=== PATIENT | male | born 1970 | race Caucasian/White ===

== ENCOUNTER → 2017-09-03 | Outpatient (CLI) | payer OTHER ==
--- NOTE | 2017-09-03 15:16 | XR ---
EXAMINATION TYPE: XR foot complete LT DATE OF EXAM: 09/03/2017 COMPARISON: NONE HISTORY: Slip and fall twisting foot pain medially TECHNIQUE: Three-view left foot FINDINGS: Degenerative joint changes at the first metatarsophalangeal joint space. No acute fractures evident. Tiny plantar calcaneal heel spur is present. Follow-up exams can be performed 7-10 days from acute trauma for continued pain. IMPRESSION: 1. No acute osseous abnormality.
== END | disposition home or self-care (01) ==
LOC: RADXRMAIN 14:49
PROVIDERS: ATTEND Emergency Medicine
DX: S93.602A Unspecified sprain of left foot, initial encounter (principal)

== ENCOUNTER 2018-05-28 16:40 | Emergency (ER) | payer BC, OTHER ==
[2018-05-28 16:50] VITALS: RESP 18; TEMP 98.7
[2018-05-28 17:23] LABS: Basophils # (A) 0.1 k/uL (0-0.2); Basophils % (A) 1 %; Eosinophils # (A) 0.3 k/uL (0-0.7); Eosinophils % (A) 4 %; Lymphocytes # (A) 2.4 k/uL (1.0-4.8); Lymphocytes % (A) 30 %; MCH 32.9 pg (25.0-35.0); MCV 94.2 fL (80.0-100.0); Mean Platelet Volume 6.9; Monocytes # (A) 0.5 k/uL (0-1.0); Monocytes % (A) 7 %; Neutrophils # (A) 4.5 k/uL (1.3-7.7); Neutrophils % (A) 57 %; Platelet Count 286 k/uL (150-450); RBC 4.56 m/uL (4.30-5.90); RDW 12.5 % (11.5-15.5)
--- NOTE | 2018-05-28 17:31 | XR ---
EXAMINATION TYPE: XR knee 4V RT DATE OF EXAM: 05/28/2018 CLINICAL HISTORY: Ongoing right knee pain TECHNIQUE: Three views of the right knee are obtained. A fourth sunrise view was acquired. COMPARISON: None. FINDINGS: There is no acute fracture/dislocation evident in right knee. Mild narrowing medial tibiof emoral compartment is present. Mild to moderate narrowing patellofemoral compartment is seen. Patell ar articulation is within normal limits on sunrise view. The overlying soft tissue appears unremarkab le. IMPRESSION: As above.
[2018-05-28 17:33] LABS: ALT 32 U/L (21-72); AST 36 U/L (17-59); Albumin 4.1 g/dL (3.5-5.0); Alkaline Phosphatase 60 U/L (38-126); Anion Gap 8 mmol/L; Blood Urea Nitrogen 16 mg/dL (9-20); Calcium 9.3 mg/dL (8.4-10.2); Carbon Dioxide 25 mmol/L (22-30); Chloride 108 mmol/L (98-107); Glucose 140 mg/dL (74-99); Potassium 4.4 mmol/L (3.5-5.1); Sodium 141 mmol/L (137-145); Total Bilirubin 0.4 mg/dL (0.2-1.3); Total Protein 7.2 g/dL (6.3-8.2)
[2018-05-28] MEDS ORDERED: KETOROLAC 60 MG/2 ML VIAL IM STA (18:13)
[2018-05-28 18:29] VITALS: BP 154/101; PULSE 97
--- NOTE | 2018-05-28 18:35 | ED ---
General Adult HPI - General Chief complaint: Extremity Injury, Lower Stated complaint: IHS - rt knee pain Source: patient, RN notes reviewed, old records reviewed Mode of arrival: ambulatory Limitations: no limitations - History of Present Illness Initial comments: 48-year-old male patient presents to ED with 3 weeks of right knee pain. Patient states that for approximately 3 weeks he has been having stiffness, pain in his right knee. Patient denies acute fall, trauma or injury which caused the pain. Patient states that the last 3 days it has become worse. States that particular bending his knees painful. She is still ambulatory. Patient denies other symptoms including fever chills, nausea vomiting diarrhea, chest pain, shortness breath, IV drug use. Patient denies red swollen knee, edema, drainage. Systemic: Pt denies fatigue, myalgia, fever/chills, rash. Pt denies weakness, night sweats, weight loss. Neuro: Pt denies headache, visual disturbances, syncope or pre-syncope. HEENT: Pt denies ocular discharge or irritation, otalgia, rhinorrhea, pharyngitis or notable lymphadenopathy. Cardiopulmonary: Pt denies chest pain, SOB, heart palpitations, dyspnea on exertion. Abdominal/GI: Pt denies abdominal pain, n/v/d. : Pt denies dysuria, burning w/ urination, frequency/urgency. Denies new onset urinary or bowel incontinence. MSK: Pt denies myalgia, loss of strength in extremities. - Related Data Home Medications Medication Instructions Recorded Confirmed lamoTRIgine [LaMICtal] 200 mg PO DAILY 04/26/15 04/30/15 Previous Rx's Medication Instructions Recorded Amoxicillin/Potassium Clav 1 each PO Q12HR #20 tab 04/26/15 [Augmentin 875-125 Tablet] Ibuprofen [Motrin] 600 mg PO Q6HR PRN #40 day 05/28/18 Allergies Allergy/AdvReac Type Severity Reaction Status Date / Time No Known Allergies Allergy Verified 05/28/18 16:50 Review of Systems ROS Statement: Those systems with pertinent positive or pertinent negative responses have been documented in the HPI. ROS Other: All systems not noted in ROS Statement are negative. Past Medical History Past Medical History: Seizure Disorder History of Any Multi-Drug Resistant Organisms: None Reported Past Surgical History: No Surgical Hx Reported Past Psychological History: No Psychological Hx Reported Smoking Status: Never smoker Past Alcohol Use History: Occasional Past Drug Use History: None Reported General Exam - General Exam Comments Initial Comments: Constitutional: NAD, AOX3, Pt has pleasant affect. HEENT: NC/AT, trachea midline, neck supple, no lymphadenopathy. Posterior pharynx non erythematous, without exudates. External ears appear normal, without discharge. Mucous membranes moist. Eyes PERRLA, EOM intact. There is no scleral icterus. No pallor noted. Cardiopulmonary: RRR, no murmurs, rubs or gallops, no JVD noted. Lungs CTAB in anterior and posterior greene. No peripheral edema. Abdominal exam: Abdomen soft and non-distended. Abdomen non-tender to palpation in all 4 quadrants. Bowel sounds active in LLQ. No hepatosplenomegaly. Neuro: CN II-XII grossly intact. MSK: Patient ambulatory. Patient has active flexion of right knee to approximately 90, limited secondary to pain. Full extension of right knee. Right knee is nonerythematous, nonedematous. Mild point tenderness in the medial compartment. No ecchymoses. No drainage. Posterior tibialis pulse +2 bilaterally. Lower extremity sensation intact bilaterally. Limitations: no limitations Course Vital Signs 05/28/18 05/28/18 16:47 18:29 Temperature 98.7 F Pulse Rate 106 H 97 Respiratory 18 18 Rate Blood Pressure 148/88 154/101 O2 Sat by Pulse 98 95 Oximetry Medical Decision Making - Medical Decision Making 48-year-old male patient presents in ED with 3 weeks of right knee pain, worse in the last 3 days. Patient is ambulatory, but says amylase is painful. 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 Patient does not remember any explicit injury sustained. Physical exam did not reveal gross pathology. Knee is Nonerythematous, nonedematous, nonfluctuant. Mild medial compartment tenderness to palpation is noted in the right knee. Patient lower extremities neurovascularly intact bilaterally. Plain films of right knee did not reveal any acute abnormality. CBC and CMP were unremarkable. Patient's vital signs are stable, patient was initially mildly tachycardiac secondary to pain. Second set of vitals displayed normal rate. Patient to be discharged with orthopedic follow-up. Patient offered crutches, declined. Patient bear weight and do activity as tolerated. Patient to follow up with PCP in 1-2 days. Patient to return to ED if any new signs or symptoms develop including worsening pain, red swollen knee, drainage, discharge, or any other new symptoms. Case discussed with Dr. Moy. - Lab Data Result diagrams: 05/28/18 17:10 05/28/18 17:10 Lab Results 05/28/18 05/28/18 Range/Units 17:10 17:10 WBC 8.0 (3.8-10.6) k/uL RBC 4.56 (4.30-5.90) m/uL Hgb 15.0 (13.0-17.5) gm/dL Hct 43.0 (39.0-53.0) % MCV 94.2 (80.0-100.0) fL MCH 32.9 (25.0-35.0) pg MCHC 35.0 (31.0-37.0) g/dL RDW 12.5 (11.5-15.5) % Plt Count 286 (150-450) k/uL Neutrophils % 57 % Lymphocytes % 30 % Monocytes % 7 % Eosinophils % 4 % Basophils % 1 % Neutrophils # 4.5 (1.3-7.7) k/uL Lymphocytes # 2.4 (1.0-4.8) k/uL Monocytes # 0.5 (0-1.0) k/uL Eosinophils # 0.3 (0-0.7) k/uL Basophils # 0.1 (0-0.2) k/uL Sodium 141 (137-145) mmol/L Potassium 4.4 (3.5-5.1) mmol/L Chloride 108 H (98-107) mmol/L Carbon Dioxide 25 (22-30) mmol/L Anion Gap 8 mmol/L BUN 16 (9-20) mg/dL Creatinine 1.04 (0.66-1.25) mg/dL Est GFR (CKD-EPI)AfAm >90 (>60 ml/min/1.73 sqM) Est GFR (CKD-EPI)NonAf 84 (>60 ml/min/1.73 sqM) Glucose 140 H (74-99) mg/dL Calcium 9.3 (8.4-10.2) mg/dL Total Bilirubin 0.4 (0.2-1.3) mg/dL AST 36 (17-59) U/L ALT 32 (21-72) U/L Alkaline Phosphatase 60 (38-126) U/L Total Protein 7.2 (6.3-8.2) g/dL Albumin 4.1 (3.5-5.0) g/dL Disposition Clinical Impression: Right knee sprain Disposition: HOME SELF-CARE Condition: Good Instructions: Knee Sprain (ED), Osteoarthritis (ED) Prescriptions: Ibuprofen [Motrin] 600 mg PO Q6HR PRN #40 day PRN Reason: Pain Is patient prescribed a controlled substance at d/c from ED?: No Referrals: Valeriy Perez MD [Primary Care Provider] - 1-2 days Darnell Biggs MD [STAFF PHYSICIAN] - 1-2 days Time of Disposition: 18:36
== END 2018-05-28 18:47 | disposition home or self-care (01) ==
LOC: EC 16:40
DX: S83.91XA Sprain of unspecified site of right knee, initial encounter (principal); G40.909 Epilepsy, unspecified, not intractable, without status epilepticus; Z79.899 Other long term (current) drug therapy; X58.XXXA Exposure to other specified factors, initial encounter
CPT/HCPCS: 36415; 80053; 85025; 73564; 99284; 96372; J1885

== ENCOUNTER → 2023-11-05 | Outpatient (CLI) | payer BC ==
--- NOTE | 2023-11-05 12:25 | CT ---
EXAMINATION TYPE: CT foot LT wo con CT DLP: 254.70 mGycm, Automated exposure control for dose reduction was used. DATE OF EXAM: 11/05/2023 9:30 AM COMPARISON: Foot radiograph 09/03/2017 CLINICAL INDICATION:Male, 53 years old with history of S93.325A DISLOCATION METATARSAL JOINT; PHH, le ft foot lisfranc fx TECHNIQUE: Axial images were obtained of the CT foot LT wo con, Additional coronal and sagittal refor matted images and soft tissue and bone window were obtained for review. 3-D reconstruction was create d on a separate workstation. Contrast used: mL of , (None if empty) Oral contrast used: (None if empty) FINDINGS: Degeneration changes of the joints of the foot most pronounced at the first digit metatarsophalangeal joint with osteophyte formation and joint space narrowing. There are fractures identified including minimally displaced in the lateral cuneiform series 13 image 69 and 71 as well as the base of the fourth metatarsal with mild displacement. Bony fragments in the expected location of the Lisfranc ligament donor site base of the second metatarsal base. Fracture o f the tibia series 15 image 6 also present. IMPRESSION: 1. Evidence of Lisfranc injury with avulsion fracture of the base of the second metatarsal as well a s fractures of the lateral cuneiform and base of the fourth metatarsal. 2. Minimally displaced fracture of the tibia laterally. 3. Severe first digit metatarsophalangeal joint osteoarthrosis.
== END | disposition home or self-care (01) ==
LOC: RADCTMAIN 09:04
PROVIDERS: ATTEND Podiatrist
DX: S92.322A Displaced fracture of second metatarsal bone, left foot, initial encounter for closed fracture (principal); S93.325A Dislocation of tarsometatarsal joint of left foot, initial encounter; S92.902A Unspecified fracture of left foot, initial encounter for closed fracture; M19.072 Primary osteoarthritis, left ankle and foot; X58.XXXA Exposure to other specified factors, initial encounter

== ENCOUNTER 2023-11-12 11:03 | Day surgery (SDC) | payer BC ==
[~2023-11-12 11:03] MED LIST: HYDROmorphone 0.5 MG/0.5 ML SYRINGE IVP PRN
[2023-11-12] MEDS: LACTATED RINGERS 1,000 ML IV SCH (11:35)
[2023-11-12] MEDS: DEXAMETHASONE SOD PHOSPHATE 4 MG/ML 1 ML VIAL IV ONE (11:45)
[2023-11-12] MEDS: ONDANSETRON 4 MG/2 ML VIAL IVP ONE (11:45)
[2023-11-12] MEDS: MIDAZOLAM 2 MG/2 ML VIAL IVP ONE (12:28)
--- NOTE | 2023-11-12 12:55 | P.ANPRN ---
Procedure Note - Anesthesia - Nerve Block Performed Left Popliteal Single Time Out Performed: Yes (1227) Date of Procedure: 11/12/23 Procedure Start Time: 12:30 Procedure Stop Time: 12:40 Location of Patient: PreOp Indication: Acute Post-Operative Pain, Requested by Surgeon Sedation Type: Sedate with meaningful contact maintained Preparation: Sterile Prep, Sterile Dressing Position: Right Lateral Catheter: None Needle Types: Pajunk Needle Gauge: 21 Ultrasound used to visualize needle placement: Yes Ultrasound used to observe medication spread: Yes Injectate: 0.5% Ropivacaine (see comment for volume) (25 mL of block solution containing 15 mL of 0.5% ropivacaine mixed with 4 MG of dexamethasone, and 9 ML of preservative-free normal saline) Blood Aspirated: No Pain Paresthesia on Injection Noted: No Resistance on Injection: Normal Image Stored and Saved: Yes Events: Uneventful and Well Tolerated
--- NOTE | 2023-11-12 12:56 | P.ANPRN ---
Procedure Note - Anesthesia - Nerve Block Performed Left Adductor Canal Single Time Out Performed: Yes (1227) Date of Procedure: 11/12/23 Procedure Start Time: 12:30 Procedure Stop Time: 12:40 Location of Patient: PreOp Indication: Acute Post-Operative Pain, Requested by Surgeon Sedation Type: Sedate with meaningful contact maintained Preparation: Sterile Prep, Sterile Dressing Position: Supine Catheter: None Needle Types: Pajunk Needle Gauge: 21 Ultrasound used to visualize needle placement: Yes Ultrasound used to observe medication spread: Yes Injectate: 0.5% Ropivacaine (see comment for volume) (20 mL of block solution containing 10 ML of 0.5% ropivacaine mixed with 10 ML of preservative-free normal saline) Blood Aspirated: No Pain Paresthesia on Injection Noted: No Resistance on Injection: Normal Image Stored and Saved: Yes Events: Uneventful and Well Tolerated
[2023-11-12] MEDS ORDERED: DEXAMETHASONE SOD PHOSPHATE 4 MG/ML 1 ML VIAL ONE (13:01)
[2023-11-12] MEDS ORDERED: PROPOFOL 10 MG/ML 20 ML VIAL IV ONE (13:01)
[2023-11-12] MEDS ORDERED: fentaNYL (PF) 50 MCG/ML 2 ML AMP ONE (13:01)
[2023-11-12] MEDS ORDERED: LIDOCAINE 1% INJ 10MG/ML (20 ML MDV) ONE (13:01)
[2023-11-12] MEDS ORDERED: ROPIVACAINE 5 MG/ML 30 ML VIAL ONE (13:01)
[2023-11-12] MEDS ORDERED: SODIUM CHLORIDE 0.9% (PF) 10 ML VIAL ONE (13:01)
--- NOTE | 2023-11-12 14:13 | P.OP ---
Date of Procedure: 11/19/23 Preoperative Diagnosis: tarsometatarsal joint dislocation left foot Postoperative Diagnosis: same Procedure(s) Performed: open reduction with internal fixation left tarsometatarsal joint dislocation Implants: 4.5 mm fully threaded stainless screw 3.7 mm fully threaded stainless screw Anesthesia: RUFINA Surgeon: Benoit Roberts Estimated Blood Loss (ml): 2 Pathology: none sent Condition: stable Disposition: PACU Description of Procedure: Prior to the patient being brought to the operating room, anesthesia administered nerve block on the left lower extremity. The patient was brought into the operative room and placed on table in supine position. Timeout was taken to confirm correct patient identifiers, correct laterally to surgery, and correct procedure. Once all staff in the room were in agreement with the timeout, the patient was induced and placed under general anesthesia. A well- padded tourniquet was placed on the left ankle and a bump underneath the left hip to internally rotate the left foot. The left foot was then prepped and draped in usual manner. The left foot was exsanguinated with an Esmarch bandage and then the tourniquet was inflated to 250 mmHg. A metallic marker and fluoroscopy were used to identify the lateral aspect of the base of the second metatarsal. A small incision was made through the skin and then bluntly dissected down to the lateral aspect of the base of the second metatarsal. The hook portion of the reduction clamp was then placed around the base of the second metatarsal on the lateral aspect. The cuneiform portion of the reduction clamp was then aligned along the medial cuneiform and ankle in a way so that the screw would pass through the medial cuneiform into the second metatarsal base, and avoid the first and second tarsal metatarsal joints. Once the reduction clamp was properly aligned, the compression device was used to reduce the subluxation. Fluoroscopy confirmed the reduction of the subluxation. A small stab incision was made through the skin where the screw would be placed. A guidewire for a 4.5 mm screw was then inserted through the reduction clamp guidance and advanced until it abutted against the hook on the reduction clamp. over drilling was performed first until the drill bit breached the lateral cortex of the medial cuneiform adjacent to the second metatarsal base. Then under drilling was performed until the lateral cortex of the bases second metatarsal was breached. The wire was removed and then a 4.5 mm fully threaded stainless steel screw was inserted and the drill hole and advanced until the threads engaged second metatarsal base and the head of the medial cuneiform allowed for compression. Fluoroscopic imaging confirmed proper placement of the screw on AP and lateral views. The reduction clamp was removed, and then another wire placed just proximal to the first screw and advanced from the medial to intermediate cuneiform. There was good compression across the intercuneiform joint. Final fluoroscopic images showed proper placement of hardware and reduction of the injury. The wounds were thoroughly irrigated. The incisions were closed wtih 3-0 nylon. A non-adherent layer was placed over the incisions and then a dry sterile dressing applied. The tourniquet was released and capillary refill returned to all digits on the left foot. Anesthesia was reversed and the patient taken to recovery with vital signs stable.
[2023-11-12 14:24] VITALS: RESP 16; TEMP 97.7
[2023-11-12 15:09] VITALS: BP 136/90; PULSE 84
== END 2023-11-12 15:28 | disposition home or self-care (01) ==
LOC: OR 11:03
PROVIDERS: ATTEND Podiatrist
DX: S93.325A Dislocation of tarsometatarsal joint of left foot, initial encounter (principal); G89.18 Other acute postprocedural pain; I10 Essential (primary) hypertension; G40.909 Epilepsy, unspecified, not intractable, without status epilepticus; Z79.899 Other long term (current) drug therapy; X58.XXXA Exposure to other specified factors, initial encounter
CPT/HCPCS: 28615; 64447; 64445; C1713; J2250; J1100; J0690; J2405; J2001; J3010; J2795; J2704

== ENCOUNTER 2024-09-07 12:43 | Emergency (ER) | payer BC, OTHER ==
--- NOTE | 2024-09-07 12:58 | ED ---
Back Pain HPI - General Chief Complaint: Back Pain/Injury Stated Complaint: [facility]-Fall/Back pain Time Seen by Provider: 09/07/24 12:58 Source: patient, RN notes reviewed Limitations: no limitations - History of Present Illness Initial Comments: 54-year-old male presents emergency department after a fall. 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 He denies hitting his head or loss of conscious at the time of the fall. He is currently complaining of pain to his right lumbar spine in addition to his right mid thoracic spine that is exacerbated with range of motion. He denies loss of bladder bowel continence, saddle ane sthesias, or radiation of pain. has not taken any medications to alleviate symptoms. denies blood thinner use. - Related Data Home Medications Medication Instructions Recorded Confirmed lamoTRIgine [LaMICtal] 200 mg PO HS 04/26/15 11/09/23 amLODIPine [Norvasc] 10 mg PO DAILY 11/09/23 11/09/23 Previous Rx's Medication Instructions Recorded traMADol HCL 50 mg PO Q6H PRN 3 Days #12 tab 11/12/23 Allergies Allergy/AdvReac Type Severity Reaction Status Date / Time No Known Allergies Allergy Verified 11/12/23 11:20 Review of Systems ROS Statement: Those systems with pertinent positive or pertinent negative responses have been documented in the HPI. ROS Other: All systems not noted in ROS Statement are negative. Past Medical History Past Medical History: Hypertension, Musculoskeletal Disorder, Seizure Disorder Additional Past Medical History / Comment(s): tripped & fell last Wednesday, fx. left foot, wearing aircast, last seizure >12 yrs. ago History of Any Multi-Drug Resistant Organisms: None Reported Past Surgical History: Tonsillectomy Past Anesthesia/Blood Transfusion Reactions: No Reported Reaction Past Psychological History: No Psychological Hx Reported Smoking Status: Never smoker - Past Family History Mother Family Medical History: No Reported History General Exam Limitations: no limitations ENT exam: Present: normal exam, mucous membranes moist Neck exam: Present: normal inspection. Absent: tenderness, meningismus, lymphadenopathy Respiratory exam: Present: normal lung sounds bilaterally. Absent: respiratory distress, wheezes, rales, rhonchi, stridor Cardiovascular Exam: Present: regular rate, normal rhythm, normal heart sounds. Absent: systolic murmur, diastolic murmur, rubs, gallop, clicks GI/Abdominal exam: Present: soft, normal bowel sounds. Absent: distended, tenderness, guarding, rebound, rigid Extremities exam: Present: normal inspection, full ROM, normal capillary refill. Absent: tenderness, pedal edema, joint swelling, calf tenderness Back exam: Present: normal inspection, full ROM, tenderness (with ROM of the lumbar and throacic spine). Absent: CVA tenderness (R), CVA tenderness (L) Neurological exam: Present: alert, oriented X3, CN II-XII intact Course Vital Signs 09/07/24 09/07/24 12:50 13:59 Temperature 98.9 F 98.7 F Pulse Rate 110 H 98 Respiratory 20 18 Rate Blood Pressure 122/79 126/81 O2 Sat by Pulse 96 97 Oximetry Medical Decision Making - Medical Decision Making Was pt. sent in by a medical professional or institution (, PA, HEAD HOST/HOSTESS, urgent care, hospital, or residential...) When possible be specific @ -No Did you speak to anyone other than the patient for history (EMS, parent, family, police, friend...)? What history was obtained from this source @ -No Did you review nursing and triage notes (agree or disagree)? Why? @ -I reviewed and agree with nursing and triage notes Were old charts reviewed (outside hosp., previous admission, EMS record, old EKG, old radiological studies, urgent care reports/EKG's, residential records)? Report findings @ -No old charts were reviewed Differential Diagnosis (chest pain, altered mental status, abdominal pain women, abdominal pain men, vaginal bleeding, weakness, fever, dyspnea, syncope, heada sergo, dizziness, GI bleed, back pain, seizure, CVA, palpatations, mental health, musculoskeletal)? @ -Differential Back Pain: Strain, zoster, cauda equina syndrome, epidural abscess, vertebral osteomy elitis, discitis, fracture, subluxation, disc herniation, DJD, spinal stenosis, dissection, AAA, pancreatitis, peptic ulcer disease, pyelonephritis, kidney stone, this is not meant to be an all-inclusive list. EKG interpreted by me (3pts min.). @ -none X-rays interpreted by me (1pt min.). @ -XR of the Lumbar and thoracic spine no evidence of fracture or dislocation, degenerative disc disease of the lumbar spine noted CT interpreted by me (1pt min.). @ -None done U/S interpreted by me (1pt. min.). @ -None done What testing was considered but not performed or refused? (CT, X-rays, U/S, labs)? Why? @ -None What meds were considered but not given or refused? Why? @ -None Did you discuss the management of the patient with other professionals (professionals i.e. , PA, HEAD HOST/HOSTESS, lab, RT, psych nurse, social work job titles, tax lawyer, teacher, trust officer, case resource manager)? Give summary @ -No Was smoking cessation discussed for >3mins.? @ -No Was critical care preformed (if so, how long)? @ -No Were there social determinants of health that impacted care today? How? (Homelessness, low income, unemployed, alcoholism, drug addiction, transportation, low edu. Level, literacy, decrease access to med. care, halfway, rehab)? @ -No Was there de-escalation of care discussed even if they declined (Discuss DNR or withdrawal of care, Hospice)? DNR status @ -No What co-morbidities impacted this encounter? (DM, HTN, Smoking, COPD, CAD, Cancer, CVA, ARF, Chemo, Hep., AIDS, mental health diagnosis, sleep apnea, morbid obesity)? @ -None Was patient admitted / discharged? Hospital course, mention meds given and route, prescriptions, significant lab abnormalities, going to OR and other pertinent info. @ -Discharge. 54-year-old male presenting after work-related fall. Overall he is well-appearing. There are no red flag findings concerning for cauda equina. He is provided with dose of Motrin. X-rays including removal of lumbar and thoracic spine no acute process. Supportive treatment discussed. Case discussed with Dr. gomes Undiagnosed new problem with uncertain prognosis? @ -No Drug Therapy requiring intensive monitoring for toxicity (Heparin, Nitro, Insulin, Cardizem)? @ -No Were any procedures done? @ -No Diagnosis/symptom? @ -acute lower back pain Acute, or Chronic, or Acute on Chronic? @ -acute Uncomplicated (without systemic symptoms) or Complicated (systemic symptoms)? @ -uncomplicated Side effects of treatment? @ -No Exacerbation, Progression, or Severe Exacerbation? @ -No Poses a threat to life or bodily function? How? (Chest pain, [place], [place], pneumonia, PE, COPD, DKA, ARF, appy, cholecystitis, CVA, Diverticulitis, Homicidal, Suicidal, threat to staff... and all critical care pts) @ -No Disposition Clinical Impression: Fall, Back sprain Disposition: HOME SELF-CARE Condition: Good Instructions (If sedation given, give patient instructions): Acute Low Back Pain (ED) Additional Instructions: Please return to the Emergency Department if symptoms worsen or any other concerns. Is patient prescribed a controlled substance at d/c from ED?: No Referrals: Valeriy Perez MD [Primary Care Provider] - 1-2 days Time of Disposition: 13:49
[2024-09-07] MEDS: IBUPROFEN 800 MG TAB PO STA (13:15)
--- NOTE | 2024-09-07 13:47 | XR ---
EXAMINATION TYPE: XR lumbar spine 2 or 3V, XR thoracic spine 2V DATE OF EXAM: 09/07/2024 CLINICAL HISTORY: pain, fall. TECHNIQUE: Frontal and lateral views of the lumbar spine with additional coned and lateral L5-S1 spot view. Frontal and lateral views of the thoracic spine which should resume. COMPARISON: None. FINDINGS: There are 5 lumbar type vertebral bodies identified. No acute fracture. Mild retrolisthesis of L5 on S1. Minimal dextrocurvature of the thoracic spine. Vertebral body heights are within normal limits. Mild disc space narrowing with endplate sclerosis and anterior aspect stenosis of the lower lumbar s pine with facet arthropathy of the lower lumbar spine. Vacuum disc disease L5-S1. The overlying soft tissue appears unremarkable. A few pelvic phleboliths. The visualized lungs are clear. IMPRESSION: 1. No acute fracture or dislocation is seen in the lumbar spine. 2. Multilevel degenerative disc disease of the lower lumbar spine most pronounced at L5-S1. 3. Mild retrolisthesis of L5 on S1. [facility], , 09/07/2024 1:45 PM
[2024-09-07 14:01] VITALS: BP 126/81; PULSE 98; RESP 18; TEMP 98.7
== END 2024-09-07 14:51 | disposition home or self-care (01) ==
LOC: EC 12:43
DX: S33.5XXA Sprain of ligaments of lumbar spine, initial encounter (principal); W19.XXXA Unspecified fall, initial encounter
CPT/HCPCS: 72070; 72100; 99283